=== PATIENT | female | born 1955 | race Caucasian/White ===

== ENCOUNTER 2016-12-26 12:22 | Day surgery (SDC) | payer BC ==
[2016-12-26] MEDS ORDERED: LIDOCAINE 2% MDV (20MG/ML) 20ML VIAL IV ONE (14:00)
[2016-12-26] MEDS ORDERED: PROPOFOL 10 MG/ML VIAL IV ONE (14:00)
[2016-12-26] MEDS ORDERED: MIDAZOLAM HCL 2MG/2ML VIAL IV ONE (14:00)
--- NOTE | 2016-12-30 15:16 | Operative Note ---
DATE OF SURGERY: 12/26/2016. REFERRING PHYSICIAN: Derek Scott M.D. PROCEDURE: Colonoscopy to the cecum. INDICATION: Family history of colon cancer (mother). The patient also has a prior history of adenomatous polyps. She returns at this time for surveillance. ANESTHESIA: Intravenous sedation was administered by the Department of Anesthesiology and included Diprivan titrated to effect. PROCEDURE: Following informed consent from this alert individual, including a discussion of the risks and benefits of the procedure and an opportunity for the patient to ask questions, the patient was in the left lateral decubitus position. A digital rectal examination was performed. No abnormalities were detected. Following this, the Olympus PCF-180 video colonoscope was inserted into the rectum without resistance. The rectal mucosa had a normal appearance with normal folds and distensibility. The colonoscope was advanced up through the bowel to the level of the cecum without much difficulty. Throughout the bowel, the mucosa appeared normal, folds were normal, and the bowel was fairly distensible. There were a few scattered diverticula noted in the sigmoid colon and one in the ascending colon. The cecum was well defined by noting the appendiceal orifice and ileocecal valve. Colon preparation was good. From the base of the cecum, the colonoscope was then slowly withdrawn back through the bowel, re-examining the mucosa upon withdrawal. No additional abnormalities were detected. Retroflexion in the rectum revealed a normal distal rectum and pectinate line. The endoscope was straightened and removed. The patient tolerated the procedure well and was returned to the recovery area in stable condition. IMPRESSION: Mild diverticulosis and an otherwise unremarkable colonoscopy to the cecum. RECOMMENDATIONS: The patient was advised to have a recheck colonoscopy in five years' time for polyp surveillance and for a family history of colon cancer. Follow up will otherwise be with Dr. Venkat Scott. ANGELINA KHANNA D.O. Date Time JOB NUMBER: [id number] cc: Derek Scott M.D. [facility]
== END 2016-12-26 13:51 | disposition home or self-care (01) ==
LOC: HOP 12:22
PROVIDERS: ATTEND Internal Medicine Gastroenterology
DX: Z09 Encounter for follow-up examination after completed treatment for conditions other than malignant neoplasm (principal); Z80.0 Family history of malignant neoplasm of digestive organs